=== PATIENT | male | born 1990 | race Two or more races ===

== ENCOUNTER → 2019-09-05 | Outpatient (CLI) | payer MEDICAID ==
[2019-09-05 09:29] LABS: Eosinophils # (auto) 0.1 10 ^3/uL (0-0.8); Hemoglobin 12.3 g/dL (13.5-17.5)
[2019-09-05 09:32] LABS: Basophils # (auto) 0 10 ^3/uL (0-0.2); Basophils % (auto) 0.4 % (0.0-2.0); Lymphocytes % (auto) 16.4 % (10.0-50.0); Mean Corpuscular Hemoglobin 25.2 pg (28.0-32.0); Mean Corpuscular Hgb Conc. 32.4 g/dL (32.0-36.0); Monocytes # (auto) 0.9 10 ^3/uL (0-1.3); Monocytes % (auto) 7.8 % (0.0-12.0); Neutrophils # (auto) 8.9 10 ^3/uL (1.6-8.6); Neutrophils % (auto) 74.4 % (37.0-80.0); Nucleated Red Blood Cells % 0.1 %; Platelet Count (auto) 370 10^3/uL (140-450); Red Blood Cells 4.88 10^6/uL (4.5-5.90); White Blood Cell 11.9 10^3/uL (4.4-10.8)
[2019-09-05 09:37] LABS: Urine Bacteria NONE SEEN /hpf (None Seen); Urine Blood TRACE /uL (Negative); Urine Mucus FEW (None Seen); Urine Specific Gravity 1.016 (1.001-1.035); Urine WBC <1 /hpf (0 - 3)
[2019-09-05 10:02] LABS: Albumin 2.6 g/dL (3.4-5.0); Calcium 8.9 mg/dL (8.5-10.1)
[2019-09-05 10:06] LABS: BUN/Creatinine Ratio 13.7; Bilirubin, Total 1.2 mg/dL (0.2-1.0)
[2019-09-08 09:19] LABS: Hepatitis B Surface Antibody Positive
[2019-09-08 10:17] LABS: Hepatitis B Core IgM Negative; Hepatitis B Core Total AB Negative; Hepatitis B Surface Antigen Negative (Negative); Hepatitis C Antibody Negative (Negative)
== END | disposition home or self-care (01) ==
LOC: LAB 08:56
PROVIDERS: ATTEND Internal Medicine
DX: B20 Human immunodeficiency virus [HIV] disease (principal); C21.0 Malignant neoplasm of anus, unspecified
CPT/HCPCS: 36415; 80053; 80061; 81001; 84439; 84443; 85652; 86360; 86592; 86704; 86705; 86706; 86803; 87340; 87536

== ENCOUNTER 2019-10-02 04:59 | Inpatient (IN) | payer MEDICAID ==
[~2019-10-02] VITALS: Ht 165.1 cm; Wt 68.3 kg
[2019-10-02] VITALS (18 sets, daily range): BP systolic 93–120; BP diastolic 48–76
[2019-10-02] MEDS ORDERED: ACETAMINOPHEN 500 MG TAB PO ONE ×2 (06:15→11:30)
[2019-10-02] MEDS ORDERED: SODIUM CHLORIDE 0.9% 1,000 ML IV ONE ×4 (06:15→11:30)
[2019-10-02 06:21] LABS: Hematocrit 27.2 % (41.0-53.0); Red Blood Cells 3.69 10^6/uL (4.5-5.90); White Blood Cell 2.8 10^3/uL (4.4-10.8)
[2019-10-02 06:22] LABS: Hemoglobin 8.9 g/dL (13.5-17.5); Mean Corpuscular Hemoglobin 24.2 pg (28.0-32.0); Mean Corpuscular Hgb Conc. 32.8 g/dL (32.0-36.0); Mean Corpuscular Volume 73.8 fL (80.0-100.0); Platelet Count (auto) 181 10^3/uL (140-450); Red Cell Distribution Width 16.6 % (11.8-14.3)
[2019-10-02 06:29] LABS: Band Neutrophils % (manual) 0; Basophils % (manual) 0 (0.0-2.0); Blast Cells 0; Eosinophils % (manual) 0 (0-7); Metamyelocytes % 0; Monocytes % (manual) 0 (0-12); Myelocytes % 0; Promyelocytes % 0; Reactive Lymphocytes 0
[2019-10-02 06:36] LABS: INR 1.18 (0.9-1.15); Partial Thromboplastin Time 30.1 sec (23.64-32.05)
[2019-10-02 06:39] LABS: Lymphocytes % (manual) 6 (10.0-50.0)
[2019-10-02 06:42] LABS: Potassium 3.9 mmol/L (3.5-5.1)
[2019-10-02 06:43] LABS: Lactic Acid w/Reflex 3.2 mmol/L (0.4-2.0)
[2019-10-02 07:05] LABS: Albumin 1.9 g/dL (3.4-5.0); BUN/Creatinine Ratio 14.6; Calcium 6.9 mg/dL (8.5-10.1); Magnesium 2.2 mg/dL (1.6-2.6)
[2019-10-02] MEDS ORDERED: AZITHROMYCIN 500MG/ 250ML 250 ML IV ONE (07:30)
[2019-10-02] MEDS ORDERED: cefTRIAXone 1GM/50ML D5W 50 ML IV ONE (07:30)
[2019-10-02 08:51] LABS: Urine Bacteria NONE SEEN /hpf (None Seen); Urine Blood Negative /uL (Negative); Urine Mucus FEW (None Seen); Urine Specific Gravity 1.012 (1.001-1.035); Urine WBC 5 /hpf (0 - 3)
[2019-10-02] MEDS ORDERED: NOREPINEPHRINE 8 MG/250ML KIT 250 ML IV SCH (12:56)
[2019-10-02] MEDS ORDERED: IPRATROPIUM BROM 0.5 MG/2.5ML INH SOL NEB PRN (13:15)
[2019-10-02] MEDS ORDERED: SODIUM CHLORIDE 0.9% 1,000 ML IV SCH (13:15)
[2019-10-02] MEDS ORDERED: NITROGLYCERIN 0.4 MG SL TAB SL PRN (13:15)
[2019-10-02] MEDS ORDERED: ONDANSETRON HCL 4 MG/2 ML VIAL IV PRN (13:15)
[2019-10-02] MEDS ORDERED: VANCOMYCIN PER PHARMACY 0 MG IV SCH (13:15)
[2019-10-02] MEDS ORDERED: ALBUTEROL SULF 2.5 MG/0.5ML(0.5%) NEB SOLN NEB PRN (13:15)
[2019-10-02] MEDS ORDERED: MORPHINE SULF INJ 2 MG/ML SYRINGE 1ML IV PRN ×2 (13:15)
[2019-10-02] MEDS ORDERED: IOHEXOL 300 MG/ML 100ML BOTTLE IJ ONE (13:26)
[2019-10-02] MEDS ORDERED: FLUCONAZOLE 200MG/100ML 100 ML IV SCH ×2 (14:00→15:00)
[2019-10-02] MEDS: VANCOMYCIN 1GM/250ML 250 ML IV SCH (15:43)
[2019-10-02] MEDS ORDERED: GENVOYA TABLET PO SCH (16:58)
[2019-10-02] MEDS: GENVOYA TABLET PO SCH (17:18)
[2019-10-02] MEDS: PIPERACILLIN-TAZOB 3.375GM 100 ML IV SCH (18:20)
[2019-10-02] MEDS: ACETAMINOPHEN 500 MG TAB PO PRN (18:38)
[2019-10-02] MEDS: SODIUM CHLORIDE 0.9% 1,000 ML IV SCH (23:03)
[2019-10-02] MEDS ORDERED: ELVI1TAB5 PO (23:18)
[2019-10-02] MEDS ORDERED: HYDR-4833 PO (23:18)
[2019-10-03] VITALS (30 sets, daily range): BP systolic 89–115; BP diastolic 45–69
[2019-10-03] MEDS: PIPERACILLIN-TAZOB 3.375GM 100 ML IV SCH ×5 (00:19→23:25)
[2019-10-03] MEDS: VANCOMYCIN 1GM/250ML 250 ML IV SCH ×2 (02:53→15:34)
[2019-10-03 03:42] LABS: Basophils # (auto) 0 10 ^3/uL (0-0.2); Eosinophils # (auto) 0 10 ^3/uL (0-0.8); Mean Corpuscular Volume 73.5 fL (80.0-100.0); Monocytes # (auto) 0 10 ^3/uL (0-1.3); Neutrophils # (auto) 1.9 10 ^3/uL (1.6-8.6); Nucleated Red Blood Cells % 0.1 %; White Blood Cell 2.2 10^3/uL (4.4-10.8)
[2019-10-03 03:43] LABS: Basophils % (auto) 0.2 % (0.0-2.0); Eosinophils % (auto) 0.6 % (0.0-7.0); Hematocrit 23.4 % (41.0-53.0); Hemoglobin 7.7 g/dL (13.5-17.5); Lymphocytes # (auto) 0.2 10 ^3/uL (0.4-5.4); Lymphocytes % (auto) 11.1 % (10.0-50.0); Mean Corpuscular Hemoglobin 24.2 pg (28.0-32.0); Mean Corpuscular Hgb Conc. 32.9 g/dL (32.0-36.0); Monocytes % (auto) 1.6 % (0.0-12.0); Neutrophils % (auto) 86.5 % (37.0-80.0); Platelet Count (auto) 135 10^3/uL (140-450); Red Blood Cells 3.18 10^6/uL (4.5-5.90); Red Cell Distribution Width 16.9 % (11.8-14.3)
[2019-10-03 04:00] LABS: Albumin 1.6 g/dL (3.4-5.0); Calcium 6.9 mg/dL (8.5-10.1); Potassium 3.6 mmol/L (3.5-5.1)
[2019-10-03 04:03] LABS: Bilirubin, Total 0.9 mg/dL (0.2-1.0); Total Protein 5.4 g/dL (6.4-8.2)
[2019-10-03] MEDS: DIPHENOXYLATE W/ATROPINE 2.5 MG TAB PO PRN ×3 (05:50→19:53)
[2019-10-03] MEDS: SODIUM CHLORIDE 0.9% 1,000 ML IV SCH ×3 (07:03→19:35)
[2019-10-03] MEDS: FLUCONAZOLE 200MG/100ML 100 ML IV SCH (09:51)
[2019-10-03] MEDS: HYDROcodone-ACET 5/325MG TAB PO PRN (15:32)
[2019-10-03] MEDS: GENVOYA TABLET PO SCH ×2 (16:00→19:54)
[2019-10-04] MEDS: ACETAMINOPHEN 500 MG TAB PO PRN (00:39)
[2019-10-04 02:20] LABS: Hemoglobin 7.4 g/dL (13.5-17.5); Red Cell Distribution Width 16.9 % (11.8-14.3)
[2019-10-04 02:22] LABS: Hematocrit 22.8 % (41.0-53.0); Mean Corpuscular Hemoglobin 23.8 pg (28.0-32.0); Mean Corpuscular Hgb Conc. 32.5 g/dL (32.0-36.0); Mean Corpuscular Volume 73.3 fL (80.0-100.0); Platelet Count (auto) 151 10^3/uL (140-450); Red Blood Cells 3.11 10^6/uL (4.5-5.90)
[2019-10-04 02:34] LABS: White Blood Cell 1.8 10^3/uL (4.4-10.8)
[2019-10-04 02:36] LABS: Basophils % (manual) 0 (0.0-2.0); Blast Cells 0; Eosinophils % (manual) 0 (0-7); Metamyelocytes % 0; Myelocytes % 0; Promyelocytes % 0; Reactive Lymphocytes 0
[2019-10-04 02:37] LABS: Albumin 1.5 g/dL (3.4-5.0); Calcium 7.1 mg/dL (8.5-10.1); Potassium 3.5 mmol/L (3.5-5.1)
[2019-10-04 02:41] LABS: BUN/Creatinine Ratio 14.3
[2019-10-04 02:43] LABS: Bilirubin, Total 0.5 mg/dL (0.2-1.0); Total Protein 5.3 g/dL (6.4-8.2)
[2019-10-04] MEDS: VANCOMYCIN 1GM/250ML 250 ML IV SCH ×3 (03:20→18:21)
[2019-10-04] MEDS: SODIUM CHLORIDE 0.9% 1,000 ML IV SCH ×2 (03:21→11:45)
[2019-10-04 03:54] LABS: Band Neutrophils % (manual) 6; Lymphocytes % (manual) 12 (10.0-50.0); Monocytes % (manual) 4 (0-12)
[2019-10-04 05:28] VITALS: BP 92/31
[2019-10-04] MEDS: PIPERACILLIN-TAZOB 3.375GM 100 ML IV SCH ×3 (05:48→15:57)
[2019-10-04 07:30] VITALS: BP 100/60
[2019-10-04 09:00] VITALS: BP 104/60
[2019-10-04] MEDS: FLUCONAZOLE 200MG/100ML 100 ML IV SCH (10:11)
[2019-10-04] MEDS: DIPHENOXYLATE W/ATROPINE 2.5 MG TAB PO PRN (12:47)
[2019-10-04 13:00] VITALS: BP 107/60
[2019-10-04] MEDS: FILGRASTIM(TBO) 480 MCG/0.8 ML SYRG SC SCH (15:50)
[2019-10-04 16:00] VITALS: BP 99/59
[2019-10-04] MEDS: GENVOYA TABLET PO SCH (17:30)
[2019-10-04 21:22] VITALS: BP 103/55
[2019-10-05] MEDS: SODIUM CHLORIDE 0.9% 1,000 ML IV SCH ×2 (00:01→07:45)
[2019-10-05] MEDS: VANCOMYCIN 1GM/250ML 250 ML IV SCH ×4 (03:00→22:00)
[2019-10-05 04:54] VITALS: BP 93/45
[2019-10-05] MEDS: PIPERACILLIN-TAZOB 3.375GM 100 ML IV SCH ×2 (06:02)
[2019-10-05 08:55] VITALS: BP 102/53
[2019-10-05 09:02] LABS: Basophils # (auto) 0 10 ^3/uL (0-0.2); Basophils % (auto) 0.6 % (0.0-2.0); Eosinophils # (auto) 0 10 ^3/uL (0-0.8); Eosinophils % (auto) 1.4 % (0.0-7.0); Hematocrit 26.5 % (41.0-53.0); Hemoglobin 8.7 g/dL (13.5-17.5); Lymphocytes # (auto) 0.3 10 ^3/uL (0.4-5.4); Lymphocytes % (auto) 20.8 % (10.0-50.0); Mean Corpuscular Hgb Conc. 32.8 g/dL (32.0-36.0); Mean Corpuscular Volume 73.2 fL (80.0-100.0); Monocytes # (auto) 0.1 10 ^3/uL (0-1.3); Neutrophils # (auto) 1.1 10 ^3/uL (1.6-8.6); Neutrophils % (auto) 69.2 % (37.0-80.0); Nucleated Red Blood Cells % 0.2 %; Platelet Count (auto) 158 10^3/uL (140-450); Red Blood Cells 3.62 10^6/uL (4.5-5.90); Red Cell Distribution Width 16.7 % (11.8-14.3)
[2019-10-05 09:07] LABS: White Blood Cell 1.6 10^3/uL (4.4-10.8)
[2019-10-05 09:26] LABS: Calcium 7.9 mg/dL (8.5-10.1); Potassium 3.6 mmol/L (3.5-5.1)
[2019-10-05 09:30] LABS: BUN/Creatinine Ratio 7.2
[2019-10-05] MEDS: FLUCONAZOLE 100 MG TAB PO SCH (09:41)
[2019-10-05] MEDS: FILGRASTIM(TBO) 480 MCG/0.8 ML SYRG SC SCH (10:00)
[2019-10-05 12:58] VITALS: BP 96/56
[2019-10-05] MEDS ORDERED: levoFLOXacin 500 MG TAB PO ONE (13:00)
[2019-10-05] MEDS: GENVOYA TABLET PO SCH (16:00)
[2019-10-05 16:34] VITALS: BP 107/60
[2019-10-05 17:37] VITALS: BP 107/60
[2019-10-05 22:25] VITALS: BP 97/46
[2019-10-06 03:26] LABS: Mean Corpuscular Hemoglobin 23.6 pg (28.0-32.0)
[2019-10-06 03:28] LABS: Hematocrit 26.3 % (41.0-53.0); Hemoglobin 8.4 g/dL (13.5-17.5); Mean Corpuscular Volume 73.8 fL (80.0-100.0); Platelet Count (auto) 160 10^3/uL (140-450); Red Blood Cells 3.57 10^6/uL (4.5-5.90)
[2019-10-06 03:55] LABS: White Blood Cell 1.3 10^3/uL (4.4-10.8)
[2019-10-06] MEDS: VANCOMYCIN 1GM/250ML 250 ML IV SCH ×2 (04:00→09:51)
[2019-10-06 04:01] LABS: Basophils % (manual) 0 (0.0-2.0); Blast Cells 0; Metamyelocytes % 0; Myelocytes % 0; Promyelocytes % 0; Reactive Lymphocytes 0
[2019-10-06 05:00] VITALS: BP 98/57
[2019-10-06 05:14] LABS: Band Neutrophils % (manual) 8; Eosinophils % (manual) 4 (0-7); Lymphocytes % (manual) 42 (10.0-50.0); Monocytes % (manual) 20 (0-12)
[2019-10-06 09:43] VITALS: BP 98/53
[2019-10-06] MEDS: FILGRASTIM(TBO) 480 MCG/0.8 ML SYRG SC SCH (09:50)
[2019-10-06] MEDS: levoFLOXacin 500 MG TAB PO SCH (09:51)
[2019-10-06] MEDS: FLUCONAZOLE 100 MG TAB PO SCH (09:51)
[2019-10-06] MEDS ORDERED: metroNIDAZOLE 500 MG TAB PO ONE (11:00)
[2019-10-06 12:35] VITALS: BP 99/53
[2019-10-06] MEDS: metroNIDAZOLE 500 MG TAB PO SCH ×2 (14:10→21:35)
[2019-10-06] MEDS: HYDROcodone-ACET 5/325MG TAB PO PRN ×2 (14:24→21:35)
[2019-10-06] MEDS: GENVOYA TABLET PO SCH (16:21)
[2019-10-06 16:39] VITALS: BP 92/48
[2019-10-06 22:00] VITALS: BP 100/53
[2019-10-06] MEDS ORDERED: LINEZOLID 600MG TABLET PO SCH (22:00)
[2019-10-07 05:00] VITALS: BP 92/55
[2019-10-07 05:06] LABS: Mean Corpuscular Hemoglobin 24.7 pg (28.0-32.0)
[2019-10-07 05:09] LABS: Hematocrit 26.4 % (41.0-53.0); Hemoglobin 8.8 g/dL (13.5-17.5); Mean Corpuscular Hgb Conc. 33.6 g/dL (32.0-36.0); Mean Corpuscular Volume 73.6 fL (80.0-100.0); Platelet Count (auto) 120 10^3/uL (140-450); Red Blood Cells 3.58 10^6/uL (4.5-5.90)
[2019-10-07 05:44] LABS: White Blood Cell 1.8 10^3/uL (4.4-10.8)
[2019-10-07 05:46] LABS: Basophils % (manual) 0 (0.0-2.0); Blast Cells 0; Eosinophils % (manual) 0 (0-7); Promyelocytes % 0; Reactive Lymphocytes 0
[2019-10-07] MEDS: metroNIDAZOLE 500 MG TAB PO SCH (06:04)
[2019-10-07] MEDS: HYDROcodone-ACET 5/325MG TAB PO PRN (06:05)
[2019-10-07 08:12] LABS: Band Neutrophils % (manual) 12; Lymphocytes % (manual) 38 (10.0-50.0); Metamyelocytes % 2; Monocytes % (manual) 26 (0-12); Myelocytes % 5
[2019-10-07 09:37] VITALS: BP 109/56
[2019-10-07] MEDS: FLUCONAZOLE 100 MG TAB PO SCH (09:41)
[2019-10-07] MEDS: levoFLOXacin 500 MG TAB PO SCH (09:41)
[2019-10-07] MEDS: FILGRASTIM(TBO) 480 MCG/0.8 ML SYRG SC SCH (09:42)
[2019-10-07 11:29] VITALS: BP 109/56
== END 2019-10-07 12:15 | disposition home or self-care (01) | DRG 720 ==
LOC: ER 04:59 → TELE 05:00 → ICU WEST 18:24 → TELE-WESTW 10-03 17:00 → WEST WING 10-06 17:40
PROVIDERS: ADMIT Nurse Practitioner Acute Care; ATTEND Internal Medicine
PROC: 02HV33Z Insertion of Infusion Device into Superior Vena Cava, Percutaneous Approach (ICD-10-PCS; principal; 2019-10-02)
DX: A41.9 Sepsis, unspecified organism (principal); R65.21 Severe sepsis with septic shock; E43 Unspecified severe protein-calorie malnutrition; E83.51 Hypocalcemia; C20 Malignant neoplasm of rectum; D50.9 Iron deficiency anemia, unspecified; Z21 Asymptomatic human immunodeficiency virus [HIV] infection status; Z85.048 Personal history of other malignant neoplasm of rectum, rectosigmoid junction, and anus; Z92.21 Personal history of antineoplastic chemotherapy; Z92.3 Personal history of irradiation; Z03.818 Encounter for observation for suspected exposure to other biological agents ruled out; Z79.899 Other long term (current) drug therapy; K61.1 Rectal abscess
CPT/HCPCS: 36415; 71045; 71260; 74177; 80048; 80053; 80202; 81001; 82728; 83605; 83735; 85007; 85025; 85027; 85610; 85730; 87040; 87070; 87076; 87081; 87086; 87493; 87804; 87880; 93005; 96361; 96365; 96367; 96368; G0378; J0696; J1447; J1450; J2543

== ENCOUNTER 2020-03-16 09:43 | Emergency (ER) | payer MEDICAID ==
[~2020-03-16] VITALS: Ht 165.1 cm; Wt 59.0 kg
[~2020-03-16 09:43] MED LIST: ELVI1TAB5 PO; HYDR-4833 PO
[2020-03-16] MEDS ORDERED: MORPHINE SULFATE 4 MG/ML SYR/VIAL IV ONE (11:00)
[2020-03-16] MEDS ORDERED: ONDANSETRON HCL 4 MG/2 ML VIAL IV ONE (11:00)
[2020-03-16 11:31] LABS: Albumin 1.9 g/dL (3.4-5.0); Calcium 7.8 mg/dL (8.5-10.1); Potassium 3.9 mmol/L (3.5-5.1)
[2020-03-16 11:34] LABS: BUN/Creatinine Ratio 15.4; Bilirubin, Total 0.4 mg/dL (0.2-1.0); Total Protein 6.4 g/dL (6.4-8.2)
[2020-03-16 13:15] LABS: Basophils # (auto) 0 10 ^3/uL (0-0.2); Basophils % (auto) 0.2 % (0.0-2.0); Eosinophils # (auto) 0.2 10 ^3/uL (0-0.8); Eosinophils % (auto) 1.5 % (0.0-7.0); Mean Corpuscular Hgb Conc. 32.6 g/dL (32.0-36.0); Neutrophils # (auto) 11.9 10 ^3/uL (1.6-8.6); Neutrophils % (auto) 86.8 % (37.0-80.0); Red Blood Cells 3.78 10^6/uL (4.5-5.90); White Blood Cell 13.7 10^3/uL (4.4-10.8)
[2020-03-16 13:17] LABS: Hematocrit 28.9 % (41.0-53.0); Hemoglobin 9.4 g/dL (13.5-17.5); Lymphocytes # (auto) 0.8 10 ^3/uL (0.4-5.4); Lymphocytes % (auto) 5.8 % (10.0-50.0); Mean Corpuscular Volume 76.6 fL (80.0-100.0); Monocytes # (auto) 0.8 10 ^3/uL (0-1.3); Monocytes % (auto) 5.7 % (0.0-12.0); Platelet Count (auto) 162 10^3/uL (140-450)
[2020-03-16] MEDS ORDERED: metroNIDAZOLE 500MG/100ML 100 ML IV ONE (13:45)
[2020-03-16 14:00] VITALS: BP 96/60
[2020-03-16] MEDS ORDERED: IOHEXOL 300 MG/ML 100ML BOTTLE IJ ONE (14:00)
== END 2020-03-16 17:32 | disposition left against medical advice (07) ==
LOC: ER 09:43
DX: C78.5 Secondary malignant neoplasm of large intestine and rectum (principal); B20 Human immunodeficiency virus [HIV] disease; F15.10 Other stimulant abuse, uncomplicated; F17.210 Nicotine dependence, cigarettes, uncomplicated; F12.10 Cannabis abuse, uncomplicated
CPT/HCPCS: 36415; 74177; 80053; 83605; 83690; 85025; 87040; 96365; 96375; 99285; J2270; J2405; J3490; Q9967